=== PATIENT | female | born 1955 | race Caucasian/White ===

== ENCOUNTER → 2019-10-15 12:41 | Outpatient (BNVA) | payer MEDICARE, OTHER, SELFPAY | PROVIDERS: Visit Provider Emergency Medicine | DX: R55 Syncope and collapse (principal); R51 Headache; S59.911A Unspecified injury of right forearm, initial encounter; S69.90XA Unspecified injury of unspecified wrist, hand and finger(s), initial encounter; W19.XXXA Unspecified fall, initial encounter; M17.11 Unilateral primary osteoarthritis, right knee; S69.91XA Unspecified injury of right wrist, hand and finger(s), initial encounter; S59.901A Unspecified injury of right elbow, initial encounter; S89.91XA Unspecified injury of right lower leg, initial encounter | CPT/HCPCS: 73080; 73090; 73110; 73130; 73562; 80053; 84443; 85025 ==

== ENCOUNTER → 2019-10-18 16:02 | Outpatient (BNVA) | payer MEDICARE, OTHER, SELFPAY | PROVIDERS: Visit Provider Nurse Practitioner Family | DX: M79.601 Pain in right arm (principal) | CPT/HCPCS: 73070; 73080 ==

== ENCOUNTER 2019-10-23 14:16 | Outpatient (CLI) | payer MEDICARE, OTHER, SELFPAY ==
--- NOTE | 2019-10-23 14:15 | CT_ITS ---
WS: [id number] CT scan of the head, 10/23/2019 Clinical Data: syncope, falls, headache Comparison: None. DLP: 925.[address] scans at [facility] use at least one of these dose optimization techniques: automat ed exposure control; mA and/or kV adjustment per patient size (includes targeted exams where dose is matched to clinical indication); or iterative reconstruction. Findings: The ventricular system is moderately dilated without shift. No recent infarct or hemorrhage is seen. There are no abnormal intracerebral masses. The cerebellum and brainstem are not remarkable. Bony windows of the skull and skull base show no fractures or erosions. The mastoid air cells, biology internship al auditory canals, sella turcica, intraorbital contents, and paranasal sinuses are unremarkable. CT/CT head wo con* [id number] Impression: Negative CT scan of the head
== END 2019-10-23 14:17 | disposition home or self-care (01) ==
LOC: RADWPI 14:22
PROVIDERS: Family Provider Chiropractor Orthopedic; PCP Chiropractor Orthopedic; Visit Provider Emergency Medicine
DX: R55 Syncope and collapse (principal); R51 Headache; W19.XXXA Unspecified fall, initial encounter
CPT/HCPCS: 70450

== ENCOUNTER → 2020-08-24 17:11 | Outpatient (BNVA) | payer MEDICARE, OTHER, SELFPAY | PROVIDERS: Family Provider Chiropractor Orthopedic; PCP Chiropractor Orthopedic; Visit Provider Nurse Practitioner Family | DX: Z20.822 Contact with and (suspected) exposure to COVID-19 (principal) | CPT/HCPCS: 87635 ==